=== PATIENT | female | born 1995 | race Caucasian/White ===

== ENCOUNTER 2016-10-05 00:42 | Emergency (ER) | payer OTHER ==
[~2016-10-05] VITALS: Ht 157.4 cm; Wt 63.5 kg
[~2016-10-05 00:42] MED LIST: AUGMENTIN 875875 MG PO; BACTRIM DS 8001 TA1 PO; BENADRYL25 M2 PO; FLONASE 0.05% 121 EA NAS; KEFLEX500 MG PO; MACROBID100 M1 PO; PREDNICOT20 MG PO; SPRINTEC 35 MCG1 TA1 PO; TRAZADONE HYDR100 MG PO; VYVANSE70 MG PO; WELLBUTRIN; WELLBUTRIN XL300 MG PO; ZOFRAN4 MG PO; ZYRTEC10 MG PO
[2016-10-05] MEDS ORDERED: CYCLOBENZAPRINE5 M3 PO (02:33)
[2016-10-05] MEDS ORDERED: IBU800 MG PO (02:33)
== END 2016-10-05 02:49 | disposition home or self-care (01) ==
LOC: ED 00:42
DX: S39.012A Strain of muscle, fascia and tendon of lower back, initial encounter (principal); W10.9XXA Fall (on) (from) unspecified stairs and steps, initial encounter; Y93.89 Activity, other specified; Y92.89 Other specified places as the place of occurrence of the external cause; Y99.9 Unspecified external cause status

== ENCOUNTER 2016-10-07 22:16 | Emergency (ER) | payer OTHER ==
[~2016-10-07] VITALS: Ht 157.4 cm; Wt 63.5 kg
[~2016-10-07 22:16] MED LIST changes: +CYCLOBENZAPRINE5 M3 PO; +IBU800 MG PO
[2016-10-07 22:52] LABS: BASO % 0.3 % (0.0-1.0); EOS # 0.1 10*3/uL (0.0-0.4); HEMATOCRIT 35.1 % (37.0-47.0); HEMOGLOBIN 12.2 g/dl (12.0-16.0); LYMPH # 1.9 10*3/uL (1.3-4.4); LYMPH % 17.2 % (27.0-41.0); MEAN CELL VOLUME 92.9 fl (81.0-99.0); MEAN CORPUSCULAR HGB 32.3 pg (27.0-31.0); MEAN CORPUSCULAR HGB CONC 34.8 g/dl (33.0-37.0); MEAN PLATELET VOLUME 9.2 fl (9.6-12.3); MONO # 0.7 10*3/uL (0.1-1.0); MONO % 6.3 % (3.0-9.0); NEUT # 8.1 10*3/uL (2.3-7.9); NEUT % 74.9 % (47.0-73.0); PLATELET COUNT AUTOMATED 330 10*3/uL (130-400); RED BLOOD COUNT 3.78 10*6/uL (4.10-5.10); RED CELL DISTRI WIDTH 11.4 % (0-14.5); WHITE BLOOD COUNT 10.8 10*3/uL (4.8-10.8)
[2016-10-07 23:09] LABS: ALBUMIN 3.3 gm/dl (3.1-4.5); ALKALINE PHOSPHATASE 77 U/L (45-117); B-hCG (QUALITATIVE) NEGATIVE (NEGATIVE); BILIRUBIN, TOTAL 0.5 mg/dl (0.2-1.0); BUN 12 mg/dl (7-24); C-REACTIVE PROTEIN 1.58 MG/DL (0-0.3); CARBON DIOXIDE 21 mmol/L (21-32); CHLORIDE 106 mmol/L (98-107); EST GLOM FILT AFRICAN AMERICAN > 60 ml/min; GLUCOSE 88 mg/dL (65-99); MAGNESIUM 2.2 mg/dL (1.5-2.1); POTASSIUM 4.4 mmol/L (3.5-5.1); SGOT/AST 23 IU/L (3-35); SGPT/ALT 14 U/L (12-78); SODIUM 139 mmol/L (136-145); TOTAL PROTEIN 7.6 gm/dL (6.4-8.2)
[2016-10-08 00:21] LABS: BILIRUBIN NEGATIVE (NEGATIVE); BLOOD NEGATIVE (NEGATIVE); CLARITY CLOUDY (CLEAR); COLOR YELLOW (YELLOW); GLUCOSE NEGATIVE (NEGATIVE); KETONE 3+ (NEGATIVE); LEUKO ESTERASE NEGATIVE (NEGATIVE); NITRITE NEGATIVE (NEGATIVE); PROTEIN NEGATIVE (NEGATIVE); UROBILINOGEN 0.2 E.U./dl (0.2-1.0)
[2016-10-08] MEDS ORDERED: CITRACAL SOFT1 EACH PO (00:28)
[2016-10-08 00:29] LABS: BACTERIA 4+; EPITHELIAL CELLS 20-25; URINE REFLEX COMMENT YES (NO)
[2016-10-08] MEDS ORDERED: CIPRO250 MG PO ×2 (00:35→00:42)
[2016-10-08] MEDS ORDERED: ZOFRAN ODT4 MG SL (00:35)
[2016-10-08] MEDS ORDERED: SKELAXIN800 M1 PO (00:41)
[2016-10-08] MEDS ORDERED: ULTRAM50 MG PO (00:41)
== END 2016-10-08 01:24 | disposition home or self-care (01) ==
LOC: ED 22:16
PROVIDERS: Emergency Medicine Emergency Medical Services
DX: S39.012A Strain of muscle, fascia and tendon of lower back, initial encounter (principal); N39.0 Urinary tract infection, site not specified; K52.9 Noninfective gastroenteritis and colitis, unspecified; R82.71 Bacteriuria; Z79.899 Other long term (current) drug therapy; X58.XXXA Exposure to other specified factors, initial encounter; Y93.9 Activity, unspecified; Y92.9 Unspecified place or not applicable; Y99.9 Unspecified external cause status

== ENCOUNTER 2019-01-25 15:14 | Emergency (ER) | payer OTHER ==
[~2019-01-25] VITALS: Ht 157.4 cm; Wt 61.2 kg
[~2019-01-25 15:14] MED LIST changes: +CIPRO250 MG PO; +CITRACAL SOFT1 EACH PO; +SKELAXIN800 M1 PO; +ULTRAM50 MG PO; +ZOFRAN ODT4 MG SL
[2019-01-25 15:49] LABS: BASO % 0.1 % (0.0-1.0); EOS % 0.1 % (1.0-4.0); HEMATOCRIT 35.4 % (37.0-47.0); HEMOGLOBIN 12.4 g/dl (12.0-16.0); LYMPH # 1.5 10*3/uL (1.3-4.4); LYMPH % 9.2 % (27.0-41.0); MEAN CELL VOLUME 93.9 fl (81.0-99.0); MEAN CORPUSCULAR HGB 32.9 pg (27.0-31.0); MEAN PLATELET VOLUME 9.4 fl (9.6-12.3); MONO # 1.3 10*3/uL (0.1-1.0); MONO % 7.7 % (3.0-9.0); NEUT # 13.5 10*3/uL (2.3-7.9); NEUT % 82.6 % (47.0-73.0); PLATELET COUNT AUTOMATED 432 10*3/uL (130-400); RED BLOOD COUNT 3.77 10*6/uL (4.10-5.10); RED CELL DISTRI WIDTH 11.5 % (0-14.5); WHITE BLOOD COUNT 16.4 10*3/uL (4.8-10.8)
[2019-01-25 16:05] LABS: ALBUMIN 4.6 gm/dl (3.1-4.5); ALKALINE PHOSPHATASE 54 U/L (45-117); BUN 22 mg/dl (7-24); CHLORIDE 110 mmol/L (98-107); CREATININE 0.81 mg/dL (0.55-1.02); LIPASE 86 U/L (73-393); POTASSIUM 3.3 mmol/L (3.5-5.1); SGOT/AST 6 IU/L (3-35); SGPT/ALT 15 U/L (12-78); SODIUM 141 mmol/L (136-145); TOTAL PROTEIN 8.2 gm/dL (6.4-8.2)
== END 2019-01-25 16:20 | disposition short-term general hospital (02) ==
LOC: ED 15:14
PROVIDERS: Nurse Practitioner Family
DX: I61.9 Nontraumatic intracerebral hemorrhage, unspecified (principal); G91.9 Hydrocephalus, unspecified; R56.9 Unspecified convulsions; Z79.899 Other long term (current) drug therapy